=== PATIENT | male | born 1975 | race Caucasian/White ===

== ENCOUNTER 2024-09-03 20:46 | Emergency (ER) | payer MEDICAID, OTHER ==
[~2024-09-03] VITALS: Ht 175.3 cm; Wt 77.2 kg
[2024-09-03 20:55] VITALS: TEMP 98.7
[2024-09-03 21:15] VITALS: PULSE 111; RESP 18; O2SAT 97
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
[2024-09-03] MEDS: LOPERAMIDE HCL 2 MG CAP/TAB PO ONE (23:00)
[2024-09-03 23:45] VITALS: BP 166/82; PULSE 128; RESP 20; O2SAT 97
[2024-09-03] MEDS: ONDANSETRON ODT 4 MG TAB PO ONE (23:45)
[2024-09-03] MEDS: cloNIDine HCL 0.1 MG TAB PO ONE (23:46)
[2024-09-03] MEDS: FAMOTIDINE 20 MG TAB PO ONE (23:46)
[2024-09-04] MEDS: ACETAMINOPHEN 325 MG TAB PO ONE (01:12)
== END 2024-09-04 04:25 | disposition home or self-care (01) ==
LOC: EDBD 20:46 → ER 20:46
DX: F11.23 Opioid dependence with withdrawal (principal); I10 Essential (primary) hypertension; G89.4 Chronic pain syndrome; Z88.0 Allergy status to penicillin; Z88.1 Allergy status to other antibiotic agents; Z88.5 Allergy status to narcotic agent; Z88.8 Allergy status to other drugs, medicaments and biological substances
CPT/HCPCS: 99284; Q0162